=== PATIENT | female | born 1995 | race Caucasian/White ===

== ENCOUNTER 2018-04-24 21:06 | Emergency (ER) | payer OTHER ==
[~2018-04-24] VITALS: Ht 172.7 cm; Wt 62.6 kg
[2018-04-25] MEDS ORDERED: LOPERAMIDE2 M1 PO (02:04)
[2018-04-25] MEDS ORDERED: PEPCID AC20 MG PO (02:04)
[2018-04-25] MEDS ORDERED: LEVSIN/SL0.125 MG PO (02:04)
[2018-04-25] MEDS ORDERED: INTESTINEX680 M1 PO (02:04)
== END 2018-04-25 02:09 ==
LOC: ER 21:06
DX: K52.89 Other specified noninfective gastroenteritis and colitis (principal)

== ENCOUNTER 2022-01-05 09:34 | Emergency (ER) | payer OTHER ==
[~2022-01-05] VITALS: Ht 172.7 cm; Wt 68.0 kg
[~2022-01-05 09:34] MED LIST: INTESTINEX680 M1 PO; LEVSIN/SL0.125 MG PO; LOPERAMIDE2 M1 PO; PEPCID AC20 MG PO
[2022-01-05] MEDS ORDERED: MULTI VITAMIN1 EACH (09:56)
[2022-01-05] MEDS ORDERED: ZINC50 M1 (09:56)
[2022-01-05] MEDS ORDERED: PROBIOTIC1 EAC4 (09:56)
[2022-01-05] MEDS ORDERED: VITAMIN C100 MG (09:56)
== END 2022-01-05 16:27 | disposition home or self-care (01) ==
LOC: ER 09:34
DX: R10.32 Left lower quadrant pain (principal)

== ENCOUNTER 2024-09-27 07:42 | Outpatient (CLI) | payer OTHER ==
[~2024-09-27 07:42] MED LIST changes: +MULTI VITAMIN1 EACH; +PROBIOTIC1 EAC4; +VITAMIN C100 MG; +ZINC50 M1
== END 2024-09-27 07:44 | disposition home or self-care (01) ==
LOC: SONOGRAMA 07:42
PROVIDERS: ATTEND Pathology Anatomic Pathology & Clinical Pathology
DX: D34 Benign neoplasm of thyroid gland (principal); E06.3 Autoimmune thyroiditis; E04.2 Nontoxic multinodular goiter